=== PATIENT | male | born 1980 | race Caucasian/White ===

== ENCOUNTER 2016-07-27 04:46 | Emergency (ER) | payer OTHER ==
[~2016-07-27] VITALS: Ht 180.3 cm; Wt 99.0 kg
[~2016-07-27 04:46] MED LIST: DOXY100C PO; HYDR-3533 PO; POLY3.5O LEFT EYE
[2016-07-27 04:47] VITALS: BP 130/77; PULSE 79; RESP 15; TEMP 97.8; O2SAT 96
[2016-07-27] MEDS ORDERED: HYDR-3533 PO (05:33)
[2016-07-27] MEDS ORDERED: PRED-503 PO (05:33)
[2016-07-27] MEDS ORDERED: KETOROLAC TROMETHAMINE 60 MG/2 ML (IM) VIAL IM ONE (05:45)
[2016-07-27] MEDS ORDERED: oxyCODONE/ACETAMINOPHEN 5 MG/325 MG TAB PO ONE (05:45)
[2016-07-27] MEDS ORDERED: predniSONE 20 MG TAB PO ONE (05:45)
--- NOTE | 2016-07-27 05:47 | PD ---
HPI Chief Complaint: Injury Time Seen by Provider: 05:42 Travel History International Travel<30 days: No Contact w/Intl Traveler<30days: No Traveled to known affect area: No History of Present Illness HPI 35-year-old white male presents to emergency department complaints of left knee pain for the past 1-2 days. He states that he's had pain intermittently in his left knee now from a 6 months. He denies any trauma. He's had a history of left knee arthroscopy with meniscal repair as well as tightening up of the ACL. He also also had a history of gout in the past in his left foot. He states that he had changes diet which did not seem to help his gout but when he went back to his old diet it appears that his symptoms of gout in his foot had resolved. He states that his left knee is extremely painful worse when he attempts to bend it or bear weight. He states that his leg seems a buckled when he has severe pain. He denies any locking. No history of trauma. He denies a fever chills. PFSH Past Medical History Narrative Medical Gout Cardiovascular Problems: Yes (heart murmur) Gout: Yes Tetanus Vaccination: < 5 Years Past Surgical History Narrative Surgical Left ACL and medial meniscus repair Social History Alcohol Use: Yes (OCC) Tobacco Use: Yes (1 PPD) Substance Use: No Allergies-Medications (Allergen,Severity, Reaction): Coded Allergies: Clindamycin (Verified Allergy, Severe, 07/27/16) Erythromycin (Verified Allergy, Severe, 07/27/16) Penicillin (Verified Allergy, Severe, 07/27/16) Azithromycin (Verified Allergy, Intermediate, 07/27/16) HIVES Reported Meds & Prescriptions Reported Meds & Active Scripts Active Lortab (Hydrocodone-Acetaminophen) 5-325 Mg Tab 1 Tab PO Q4H PRN Deltasone (Prednisone) 20 Mg Tab 20 Mg PO TID Review of Systems Except as stated in HPI: all other systems reviewed are Neg Musculoskeletal: Positive: Arthralgias, Limited ROM, Edema, Pain Physical Exam Narrative GENERAL: Well-developed, well-nourished in no acute distress. Nontoxic appearing. HEAD: Normocephalic, atraumatic. EYES: Pupils equal round and reactive. Extraocular motions intact. No scleral icterus. No injection or drainage. ENT: TMs clear without erythema. The external auditory canals clear. Nose: clear . Posterior pharynx is pink and moist. No tonsillar edema or exudate. Uvula midline. Airway patent. NECK: Trachea midline.Supple, nontender, moves head freely. No central bony tenderness or spasm. CARDIOVASCULAR: Regular rate and rhythm without murmurs, gallops, or rubs. RESPIRATORY: Clear to auscultation. Breath sounds equal bilaterally. No wheezes , rales, or rhonchi. GASTROINTESTINAL: Abdomen soft, non-tender, nondistended. No hepato-splenomegaly , or palpable masses. No guarding. EXTREMITIES: No clubbing, cyanosis, or examination the left lower extremity reveals mild joint swelling. It is mildly warm to touch. No erythema. He has full extension but limited flexion due to pain. No joint instability. No pain in the hip, ankle or foot. He has intact sensation with good pulses. BACK: Nontender without deformity or crepitance. No flank tenderness. Data Data Last Documented VS Vital Signs Date Time Temp Pulse Resp B/P Pulse Ox O2 Delivery O2 Flow Rate FiO2 07/27/16 05:14 79 15 96 Room Air 07/27/16 04:47 97.8 130/77 Orders Ketorolac Inj (Toradol Inj) (07/27/16 05:45) Prednisone (Deltasone) (07/27/16 05:45) Oxycodone-Acetamin 5-325 Mg (Percocet (07/27/16 05:45) MDM Medical Decision Making Medical Screen Exam Complete: Yes Emergency Medical Condition: Yes Medical Record Reviewed: Yes Differential Diagnosis Differential diagnoses: Arthritis, gout, meniscal injury, bursitis Narrative Course Patient's given Toradol 60 mg IM, prednisone 60 mg by mouth, and 1 Percocet 5 over grams by mouth. This is left knee pain, gout Diagnosis Primary Impression: Left knee pain Qualified Code: M25.562 - Acute pain of left knee Additional Impression: Gout Qualified Code: M10.9 - Gout of left knee, unspecified cause, unspecified chronicity Patient Instructions: General Instructions, Narcotic given in the ED Departure Forms: Tests/Procedures, Work Release Special Instructions: No work 2 days. Additional Instructions: Rest. Elevation. Prednisone and Lortab. 2 Aleve twice daily. Follow-up with an orthopedist in one week. Follow-up with a primary care doctor in 1 week. Med/Other Pt SpecificInfo: Prescription(s) given Scripts Hydrocodone-Acetaminophen (Lortab)5-325 Mg Tab1 Tab PO Q4H PRN (PAIN) #20 TAB Prov:Bhavani Muñoz MD 07/27/16 Prednisone (Deltasone)20 Mg Tab20 Mg PO TID #15 TAB Prov:Bhavani Muñoz MD 07/27/16 Disposition: 01 DISCHARGE HOME Condition: Stable Henrry Jensen Jul 27, 2016 05:47
== END 2016-07-27 06:10 | disposition home or self-care (01) ==
LOC: NEPD 04:46
DX: M25.562 Pain in left knee (principal); M10.9 Gout, unspecified; F17.200 Nicotine dependence, unspecified, uncomplicated
CPT/HCPCS: 96372; 99284; J1885; J7512

== ENCOUNTER 2016-11-14 11:42 | Emergency (ER) | payer OTHER ==
[~2016-11-14] VITALS: Ht 182.9 cm; Wt 118.2 kg
[~2016-11-14 11:42] MED LIST changes: -DOXY100C PO; -POLY3.5O LEFT EYE; +PRED-503 PO
[2016-11-14 11:45] VITALS: BP 142/78; PULSE 90; RESP 20; TEMP 97.5; O2SAT 97
--- NOTE | 2016-11-14 11:47 | PD ---
Physical Exam Date Seen by Provider: Nov 14, 2016 Time Seen by Provider: 11:45 Narrative 36-year-old [id number] white male presents to emergency department with a stab wound to the interdigital space of the index and thumb of the left hand. This occurred 20 minutes prior to arrival. Patient states the pain is a 5/10. He is not up-to-date with immunizations. Vital signs reviewed. Awaiting bed placement. [facility] Medical Record Reviewed: No Supervised Visit with POPEYE: Henrry Jessica Nov 14, 2016 11:47
[2016-11-14] MEDS ORDERED: oxyCODONE/ACETAMINOPHEN 5 MG/325 MG TAB PO ONE (12:30)
[2016-11-14] MEDS ORDERED: TETANUS/DIPHTHERIA TOXOID ADULT 0.5 ML VIAL IM ONE (12:30)
--- NOTE | 2016-11-14 12:33 | PD ---
HPI Chief Complaint: Laceration/Skin Injury Time Seen by Provider: 12:23 Travel History International Travel<30 days: No Contact w/Intl Traveler<30days: No Traveled to known affect area: No History of Present Illness HPI Patient is a 36-year-old male presenting to the [facility] for evaluation of a puncture wound to his left hand. Patient was working at home when the screwdriver slipped, stabbing him between the first and second fingers. Patient rates his pain is 5 out of 10, he states as aching and throbbing. He denies any weakness or loss of function in his hand. His last tetanus vaccine is unknown. Patient denies any significant past medical history. PFSH Past Medical History Cardiovascular Problems: Yes (heart murmur) Gout: Yes Social History Alcohol Use: Yes (OCC) Tobacco Use: Yes (1 PPD) Substance Use: No Allergies-Medications (Allergen,Severity, Reaction): Coded Allergies: clindamycin (Unverified Allergy, Severe, 10/10/16) erythromycin base (Unverified Allergy, Severe, 10/10/16) penicillin G (Unverified Allergy, Severe, 10/10/16) azithromycin (Unverified Allergy, Intermediate, 10/10/16) HIVES Reported Meds & Prescriptions Reported Meds & Active Scripts Active Lortab (Hydrocodone-Acetaminophen) 5-325 Mg Tab 1 Tab PO Q4H PRN Deltasone (Prednisone) 20 Mg Tab 20 Mg PO TID Review of Systems Except as stated in HPI: all other systems reviewed are Neg Skin: Positive Lesions Physical Exam Narrative GENERAL: Well-developed, well-nourished, alert male. Resting comfortable in no acute distress. SKIN: Warm and dry. 0.75cm puncture wound to the interdigital space on the left hand between the first and second fingers. HEAD: Normocephalic. EYES: No scleral icterus. No injection or drainage. NECK: Supple, trachea midline. No JVD or lymphadenopathy. CARDIOVASCULAR: Regular rate and rhythm without murmurs, gallops, or rubs. RESPIRATORY: Breath sounds equal bilaterally. No accessory muscle use. GASTROINTESTINAL: Abdomen soft, non-tender, nondistended. MUSCULOSKELETAL: No cyanosis, or edema. Full range of motion in left hand and fingers. No weakness noted, I/5 sealing machine operator strength. 2+ radial pulse. BACK: Nontender without obvious deformity. No CVA tenderness. Data Data Last Documented VS Vital Signs Date Time Temp Pulse Resp B/P (MAP) Pulse Ox O2 Delivery O2 Flow Rate FiO2 11/14/16 11:45 97.5 90 20 142/78 (99) 97 Room Air Orders Orders Tetanus/Diphtheria Tox Adult (Tetanus/Di (11/14/16 12:30) Hand, Limited (2vws) (11/14/16 ) Oxycodone-Acetamin 5-325 Mg (Percocet (11/14/16 12:30) MDM Medical Decision Making Medical Screen Exam Complete: Yes Emergency Medical Condition: Yes Interpretation(s) Vital Signs Date Time Temp Pulse Resp B/P (MAP) Pulse Ox O2 Delivery O2 Flow Rate FiO2 11/14/16 11:45 97.5 90 20 142/78 (99) 97 Room Air Differential Diagnosis Retained foreign body versus cellulitis versus puncture wound versus laceration versus other Narrative Course Patient's 36-year-old male presenting for evaluation of a puncture wound to his left hand that he sustained at home just prior to arrival. Patient is neurovascularly intact, there is no sign of area x-ray, tetanus vaccine and pain medications ordered. Please see procedure report for laceration repair. Hand x-rays negative for retained foreign body, bony abnormality. Pt will be placed on antibiotics prophylactically. He was given wound care instructions. He was advised that it will need to be removed in 7-10 days. He was advised not to submerge his hand in water. He is to follow-up with his primary doctor or return to emergency department to have stitches removed. He was advised to return immediately for any new or worsening symptoms. Patient verbalized understanding of instructions. Patient is able for discharge. Procedures Procedure Narrative LACERATION LOCATION: left first interdigital space LENGTH: 0.75 cm NUMBER OF STITCHES/HIEN: 1 stitch REPAIR: The area of the laceration was prepped with Betadine and sterilely draped. The laceration was infiltrated with 1% lidocaine. The wound was copiously irrigated and explored without evidence of foreign body, tendon injury or neurovascular injury. The wound was closed using 4-0 Ethilon. This was a 1 layer repair. A sterile dressing was applied. The patient was advised to keep the dressing clean and dry. Patient tolerated the procedure well. Diagnosis Primary Impression: Puncture wound Additional Impression: Tetanus toxoid vaccination administered at current visit Referrals: Primary Care Physician 1 week Patient Instructions: Care For Your Stitches (ED), General Instructions, Puncture Wound (ED) Additional Instructions: Follow-up with your primary doctor Keep area clean and dry, do not submerge hand in water Complete full course of antibiotics as prescribed Return to emergency department for any new or worsening symptoms Stitches will need to be removed in 10 days skin be done in the emergency department or with your primary care provider Med/Other Pt SpecificInfo: Prescription(s) given Scripts Tramadol (Tramadol) 50 Mg Tab 50 MG PO Q6H Y for PAIN, #6 TAB 0 Refills Prov: Josie Hester 11/14/16 Sulfamethoxazole-Trimethoprim (Bactrim DS) 800-160 Mg Tab 1 TAB PO BID for Infection, #20 TAB 0 Refills Prov: Josie Hester 11/14/16 Disposition: 01 DISCHARGE HOME Condition: Stable Josie Hester Nov 14, 2016 12:33
--- NOTE | 2016-11-14 13:02 | RADRPT ---
EXAM DATE/TIME: 11/14/2016 12:45 [facility] COMPARISON: No previous studies available for comparison. INDICATIONS : Left hand pain after hitting a screwdriver into skin, between 1st and 2nd digits. MEDICAL HISTORY : None. SURGICAL HISTORY : None. ENCOUNTER: Initial ACUITY: 1 day PAIN SCORE: 5/10 LOCATION: Left Hand, inbetween thumb and index finger. FINDINGS: Two view examination of the left hand demonstrates no soft tissue swelling, dislocation, or fracture. The joint spaces are maintained. Bony mineralization is normal. CONCLUSION: Negative for fracture or radiopaque foreign body. Connor Lujan MD FACR on November 14, 2016 at 13:00 Board Certified Radiologist. This report was verified electronically.
[2016-11-14] MEDS ORDERED: TRAM50TA PO (13:05)
[2016-11-14] MEDS ORDERED: BACT800T5 PO (13:05)
== END 2016-11-14 13:41 | disposition home or self-care (01) ==
LOC: NEPD 11:42
DX: S61.412A Laceration without foreign body of left hand, initial encounter (principal); W27.0XXA Contact with workbench tool, initial encounter; Y92.009 Unspecified place in unspecified non-institutional (private) residence as the place of occurrence of the external cause; Z23 Encounter for immunization
CPT/HCPCS: 12001; 73120; 90471; 90714; 96372